=== PATIENT | male | born 1995 | race Caucasian/White ===

== ENCOUNTER 2017-01-28 22:35 | Emergency (ER) | payer OTHER, BC ==
[2017-01-28 22:41] VITALS: TEMP 98.2
--- NOTE | 2017-01-28 22:59 | EDPHY ---
H & P Stated Complaint: upper right chest pain HPI/ROS: HPI CHIEF COMPLAINT: Right-sided chest discomfort HISTORY OF PRESENT ILLNESS: This patient very pleasant 21-year-old male significant past medical history for IBS, presents to the emergency room with 3 days of right-sided chest discomfort he describes it is a tightness pain located in the right chest worse when he takes a deep breath in. Better when he breathes out. States he has been sick with a cough for the past 3 days. Productive sputum clear. No blood. Denies history of cardiac disease or premature cardiac history in his family denies history of pulmonary embolism. He does smoke tobacco daily and marijuana. No fever. Denies nausea vomiting denies left-sided chest pain denies arm pain jaw pain or neck pain. Past Medical History: IBS Past Surgical History: No recent surgical history Social History: Daily tobacco use, daily marijuana use, occasional alcohol use , denies other illicit drugs Family History: Noncontributory ROS REVIEW OF SYSTEMS: A comprehensive 10 point review of systems is otherwise negative aside from elements mentioned in the history of present illness. Exam Constitutional triage nursing summary reviewed, vital signs reviewed, awake/ alert. Eyes normal conjunctivae and sclera, EOMI, PERRLA. HENT normal inspection, atraumatic, moist mucus membranes, no epistaxis, neck supple/ no meningismus, no raccoon eyes. Respiratory clear to auscultation bilaterally, normal breath sounds, no respiratory distress, no wheezing. Cardiovascular rate normal, regular rhythm, no murmur, no edema, distal pulses normal. Gastrointestinal soft, non-tender, no rebound, no guarding, normal bowel sounds, no distension, no pulsatile mass. Genitourinary no CVA tenderness. Musculoskeletal no midline vertebral tenderness, full range of motion, no calf swelling, no tenderness of extremities, no meningismus, good pulses, neurovascularly intact. Skin pink, warm, & dry, no rash, skin atraumatic. Neurologic awake, alert and oriented x 3, AAOx3, moves all 4 extremities equally, motor intact, sensory intact, CN II-XII intact, normal cerebellar, normal vision, normal speech. Psychiatric normal mood/affect. Heme/Lymph/Immune no lymphadenopathy. Differential Diagnosis: Includes but is not limited to in a particular order, pleurisy, pneumonia, pneumothorax, doubt ACS, doubt CHF Medical Decision Making: Plan for patient IV establishment, blood work, two view chest x-ray, D-dimer, troponin, EKG. Re-evaluation: EKG interpretation by me on record in [facility] system. Impression time of EKG 12/13/1933, this is sinus rhythm rate of 56 early repol pattern present. No acute ischemia appreciated. ED x-ray chest two view: negative for acute cardiopulmonary disease. No evidence of pneumothorax. 1250AM: Re-examination at this time patient resting comfortably. Vital signs reviewed. Negative D-dimer, negative troponin, nonischemic EKG, unremarkable chest x-ray. Patient has atypical chest pain. Right-sided most likely musculoskeletal nature. Recommend Tylenol and ibuprofen. Understands return emergency room if develops worsening chest pain shortness of breath. No evidence this patient is having ACS or pulmonary embolism. Source: Patient - Personal History Current Tetanus Diphtheria and Acellular Pertussis (TDAP): Yes - Medical/Surgical History Hx Asthma: No Hx Chronic Respiratory Disease: No Hx Diabetes: No Hx Cardiac Disease: No Hx Renal Disease: No Hx Cirrhosis: No Hx Alcoholism: No Hx HIV/AIDS: No Hx Splenectomy or Spleen Trauma: No Other PMH: EASINOPHIL ESOPHAGITIS. IBS - Social History Smoking Status: Current every day smoker Constitutional: Initial Vital Signs Temperature (C) 36.8 C 01/28/17 22:38 Heart Rate 92 01/28/17 22:38 Respiratory Rate 20 01/28/17 22:38 Blood Pressure 115/65 01/28/17 22:38 O2 Sat (%) 97 01/28/17 22:38 O2 Delivery Mode Room Air Allergies/Adverse Reactions: No Known Allergies Allergy (Unverified 01/28/17 22:38) Home Medications: Medication Instructions Recorded Amoxicillin/Clavulanate Pot 875 mg PO BID #14 tab 01/27/15 [Augmentin 875 MG TAB (*)] oxyCODONE/APAP 5/325 [Percocet 1 - 2 tab PO Q4H PRN #20 tab 01/27/15 5/325 (*)] Adderall 10 MG (*) 01/28/17 Medical Decision Making - Diagnostics Imaging Results: Imaging Impressions Chest X-Ray 01/28/17 23:05 Impression: Minor skeletal variation. - Data Points Laboratory Results: Laboratory Results 01/28/17 23:34 01/28/17 23:34 01/28/17 01/28/17 01/28/17 23:34 23:34 23:34 WBC 7.04 10^3/uL 10^3/uL (3.80-9.50) RBC 5.38 10^6/uL 10^6/uL (4.40-6.38) Hgb 16.9 g/dL g/dL (13.7-17.5) Hct 48.1 % % (40.0-51.0) MCV 89.4 fL fL (81.5-99.8) MCH 31.4 pg pg (27.9-34.1) MCHC 35.1 g/dL g/dL (32.4-36.7) RDW 12.9 % % (11.5-15.2) Plt Count 195 10^3/uL 10^3/uL (150-400) MPV 11.0 fL fL (8.7-11.7) Neut % (Auto) 57.6 % % (39.3-74.2) Lymph % (Auto) 31.3 % % (15.0-45.0) Brown % (Auto) 6.7 % % (4.5-13.0) Eos % (Auto) 3.4 % % (0.6-7.6) Baso % (Auto) 0.9 % % (0.3-1.7) Nucleat RBC Rel Count 0.0 % % (0.0-0.2) Absolute Neuts (auto) 4.06 10^3/uL 10^3/uL (1.70-6.50) Absolute Lymphs (auto) 2.20 10^3/uL 10^3/uL (1.00-3.00) Absolute Monos (auto) 0.47 10^3/uL 10^3/uL (0.30-0.80) Absolute Eos (auto) 0.24 10^3/uL 10^3/uL (0.03-0.40) Absolute Basos (auto) 0.06 10^3/uL 10^3/uL (0.02-0.10) Absolute Nucleated RBC 0.00 10^3/uL 10^3/uL (0-0.01) Immature Gran % 0.1 % % (0.0-1.1) Immature Gran # 0.01 10^3/uL 10^3/uL (0.00-0.10) D-Dimer < 0.27 ug/mLFEU ug/mLFEU (0.00-0.50) Sodium 143 mEq/L mEq/L (134-144) Potassium 4.6 mEq/L mEq/L (3.5-5.2) Chloride 106 mEq/L mEq/L (97-110) Carbon Dioxide 25 mEq/l mEq/l (22-31) Anion Gap 12 mEq/L mEq/L (8-16) BUN 19 mg/dL mg/dL (7-23) Creatinine 1.0 mg/dL mg/dL (0.7-1.3) Estimated GFR > 60 Glucose 85 mg/dL mg/dL (70-100) Calcium 10.2 mg/dL mg/dL (8.5-10.4) Magnesium 2.2 mg/dL mg/dL (1.6-2.3) Total Bilirubin 2.2 mg/dL H mg/dL (0.1-1.4) Conjugated Bilirubin 0.4 mg/dL mg/dL (0.0-0.5) Unconjugated Bilirubin 1.8 mg/dL H mg/dL (0.0-1.1) AST 25 IU/L IU/L (17-59) ALT 34 IU/L IU/L (21-72) Alkaline Phosphatase 55 IU/L IU/L (38-126) Creatine Kinase 160 IU/L IU/L (0-224) CK-MB (CK-2) Fraction 1.57 ng/mL ng/mL (0-3.19) Troponin I < 0.012 ng/mL ng/mL (0-0.034) NT-Pro-B Natriuret Pep < 11 pg/mL pg/mL (0-125) Total Protein 8.0 g/dL g/dL (6.3-8.2) Albumin 4.7 g/dL g/dL (3.5-5.0) Lipase 201.0 IU/L IU/L (23-300) Departure - Departure Disposition: Home, Routine, Self-Care Clinical Impression: Atypical chest pain Condition: Good Instructions: Thoracic Pain (ED) Additional Instructions: 1. Stay well-hydrated drink lots of fluids. 2. Take Tylenol or Motrin for pain control. 3. Return to the emergency room if you have any worsening symptoms includes worsening pain shortness of breath or questions or concerns. Referrals: USMAN NEVAREZ [Other] - As per Instructions
--- NOTE | 2017-01-28 23:36 | CPEKG ---
Heart Rate: 56 RR Interval: 1071 P-R Interval: 156 QRSD Interval: 100 QT Interval: 416 QTC Interval: 402 P [place]: 56 QRS [place]: 99 T Wave [place]: 49 EKG Severity - OTHERWISE NORMAL ECG - EKG Impression: SINUS RHYTHM EKG Impression: BORDERLINE RIGHT AXIS DEVIATION EKG Impression: ST ELEV, PROBABLE NORMAL EARLY REPOL PATTERN EKG Impression: TALL T WAVES, PROBABLY NORMAL VARIANT Electronically Signed By: Jose Anderson 29-Jan-2017 07:15:42
[2017-01-28 23:40] LABS: % IMMATURE GRANULYOCYTES 0.1 % (0.0-1.1); ABSOLUTE IMMATURE GRANULOCYTES 0.01 10^3/uL (0.00-0.10); ADD DIFF? NO; ADD MORPH? NO; ADD SCAN? NO; ATYPICAL LYMPHOCYTE FLAG 0 (0-99); FRAGMENT RBC FLAG 0 (0-99); HEMATOCRIT 48.1 % (40.0-51.0); HEMOGLOBIN 16.9 g/dL (13.7-17.5); LEFT SHIFT FLG 0 (0-99); LIPEMIA HEMOLYSIS FLAG 90 (0-99); MEAN CELL HEMOGLOBIN 31.4 pg (27.9-34.1); MEAN CELL HEMOGLOBIN CONCENTR. 35.1 g/dL (32.4-36.7); MEAN CELL VOLUME 89.4 fL (81.5-99.8); PLATELET CLUMPS FLAG 0 (0-99); PLATELET COUNT 195 10^3/uL (150-400); RED BLOOD CELL COUNT 5.38 10^6/uL (4.40-6.38); RED CELL DISTRIBUTION WIDTH 12.9 % (11.5-15.2)
[2017-01-29] LABS: ALANINE AMINOTRANSFERASE 34 IU/L (21-72); ALBUMIN 4.7 g/dL (3.5-5.0); ALKALINE PHOSPHATASE 55 IU/L (38-126); ANION GAP 12 mEq/L (8-16); ASPARTATE AMINOTRANSFERASE 25 IU/L (17-59); BILIRUBIN,TOTAL 2.2 mg/dL (0.1-1.4); BILIRUBIN-CONJUGATED 0.4 mg/dL (0.0-0.5); BILIRUBIN-UNCONJUGATED 1.8 mg/dL (0.0-1.1); CALCIUM 10.2 mg/dL (8.5-10.4); CARBON DIOXIDE 25 mEq/l (22-31); CHLORIDE 106 mEq/L (97-110); GLOMERULAR FILTRATION RATE > 60; GLUCOSE 85 mg/dL (70-100); MAGNESIUM 2.2 mg/dL (1.6-2.3); POTASSIUM 4.6 mEq/L (3.5-5.2); SODIUM 143 mEq/L (134-144)
[2017-01-29 00:12] LABS: CREATINE KINASE-MB FRACTION 1.57 ng/mL (0-3.19); TROPONIN I < 0.012 ng/mL (0-0.034)
[2017-01-29 01:08] VITALS: BP 119/72; PULSE 62; RESP 16; O2SAT 95
== END 2017-01-29 01:07 | disposition home or self-care (01) ==
DX: R07.89 Other chest pain (principal); F17.200 Nicotine dependence, unspecified, uncomplicated

== ENCOUNTER 2017-06-17 02:19 | Emergency (ER) | payer OTHER ==
[2017-06-17 02:26] VITALS: RESP 16; TEMP 97.9
--- NOTE | 2017-06-17 02:42 | EDPHY ---
H & P Stated Complaint: L arm and teeth hurt, skateboarding fall HPI/ROS: HPI CHIEF COMPLAINT: Fall off skateboard left elbow and shoulder pain HISTORY OF PRESENT ILLNESS: This patient is a 22-year-old male otherwise healthy significant past medical history for IBS, he presents emergency room left elbow pain and left humerus pain. He states he fell off his skateboard. Landing on his left elbow and left arm. He additionally struck his face on the ground broke his front teeth. He denies any headache or neck pain. Denies any significant dental pain. No malocclusion. Main complaint is 7/10 left elbow and left humerus pain. He does report he has been drinking tonight. Past Medical History: No medical history except for IBS Past Surgical History: No recent surgical history Social History: Denies daily use of drugs alcohol tobacco products. Family History: Noncontributory ROS REVIEW OF SYSTEMS: A comprehensive 10 point review of systems is otherwise negative aside from elements mentioned in the history of present illness. Exam Constitutional triage nursing summary reviewed, vital signs reviewed, awake/ alert. Eyes normal conjunctivae and sclera, EOMI, PERRLA. HENT oropharynx: Front incisors are fractured. There is missing pieces of the end of the frontal incisors. normal inspection, atraumatic, moist mucus membranes, no epistaxis, neck supple/ no meningismus, no raccoon eyes. Respiratory clear to auscultation bilaterally, normal breath sounds, no respiratory distress, no wheezing. Cardiovascular rate normal, regular rhythm, no murmur, no edema, distal pulses normal. Gastrointestinal soft, non-tender, no rebound, no guarding, normal bowel sounds, no distension, no pulsatile mass. Genitourinary no CVA tenderness. Musculoskeletal left upper extremity: Held in adduction, he is tender palpation over the left posterior elbow olecranon, swelling present, with range of motion he has pain, he is sensation is tach, x-ray nerve intact, additionally also has pain palpation of the proximal humerus and lateral shoulder, limited range of motion due to pain, left arm is neurovascular intact good cap refill, good distal pulse. no midline vertebral tenderness, full range of motion, no calf swelling, no tenderness of extremities, no meningismus , good pulses, neurovascularly intact. Skin pink, warm, & dry, no rash, skin atraumatic. Neurologic awake, alert and oriented x 3, AAOx3, moves all 4 extremities equally, motor intact, sensory intact, CN II-XII intact, normal cerebellar, normal vision, normal speech. Psychiatric normal mood/affect. Heme/Lymph/Immune no lymphadenopathy. Differential Diagnosis: Includes but is not limited to in a particular order: Left elbow fracture, humerus fracture, shoulder fracture, multiple contusions, dental fracture Medical Decision Making: Plan for this patient [place] for pain control, x-ray left elbow, humerus, shoulder, most likely splint. Re-evaluation: The x-ray of his left shoulder, left humerus, left elbow has been reviewed. I do not appreciate acute fracture on any of these x-rays. However he does have significant elbow swelling on exam. There may be an occult radial head fracture. This patient be placed in a splint posterior long-arm. Sling. Pain Medicine orthopedic follow-up. Possible occult elbow fracture. Additionally his Teeth he needs to follow-up with dentistry. 0440AM: Patient has been splinted long arm posterior. Reason for splint elbow pain. Possible occult radial head fracture. Sling present. Patient understands follow up with Orthopedic surgery outpatient. Call for an appointment. He understands return emergency room if he has any worsening symptoms including pain, numbness tingling significant swelling. Questions about a splint. He is neurovascular intact at this time. No loss of sensation. Axillary nerve intact. Source: Patient - Personal History Current Tetanus/Diphtheria Vaccine: Yes - Medical/Surgical History Hx Asthma: No Hx Chronic Respiratory Disease: No Hx Diabetes: No Hx Cardiac Disease: No Hx Renal Disease: No Hx Cirrhosis: No Hx Alcoholism: No Hx HIV/AIDS: No Hx Splenectomy or Spleen Trauma: No Other PMH: PSHx: denies. PMHx: ADHDEASINOPHIL ESOPHAGITIS, IBS - Social History Smoking Status: Current every day smoker Constitutional: Initial Vital Signs Temperature (C) 36.6 C 06/17/17 02:22 Heart Rate 84 06/17/17 02:22 Respiratory Rate 16 06/17/17 02:22 Blood Pressure 115/68 06/17/17 02:22 O2 Sat (%) 95 06/17/17 02:22 O2 Delivery Mode Room Air Allergies/Adverse Reactions: No Known Allergies Allergy (Unverified 01/28/17 22:38) Home Medications: Medication Instructions Recorded Adderall 10 MG (*) 05/05/17 Hydrocodone/APAP 5/325 [[place] 1 - 2 tab PO Q4H PRN #10 tab 06/17/17 5/325] Ibuprofen [Motrin (*)] 800 mg PO Q6-8PRN #7 tab 06/17/17 Medical Decision Making - Data Points Medications Given: Discontinued Medications Hydrocodone Bitart/Acetaminophen ([place] 5/325) 1 tab PO EDNOW ONE Stop: 06/17/17 02:47 Last Admin: 06/17/17 02:49 Dose: 1 tab Hydrocodone Bitart/Acetaminophen ([place] 5/325) 1 tab PO EDNOW ONE Stop: 06/17/17 04:39 Last Admin: 06/17/17 04:39 Dose: 1 tab Departure - Departure Disposition: Home, Routine, Self-Care Clinical Impression: Elbow fracture, left Qualifiers: Encounter type: initial encounter Fracture type: closed Qualified Code(s): S42.402A - Unspecified fracture of lower end of left humerus, initial encounter for closed fracture Condition: Good Instructions: Hydrocodone/Acetaminophen (By mouth), Elbow Fracture (ED) Additional Instructions: 1. Stay in your splint for comfort. 2. Sling for comfort. 3. Please follow up with Orthopedics. You may have a elbow fracture. Referrals: MICHAEL COTTO [Other] - As per Instructions Brittney Haywood MD [Medical Doctor] - As per Instructions Prescriptions: Hydrocodone/APAP 5/325 [[place] 5/325] 1 - 2 tab PO Q4H PRN #10 tab PRN Reason: Pain, Moderate Ibuprofen [Motrin (*)] 800 mg PO Q6-8PRN #7 tab
[2017-06-17] MEDS ORDERED: HYDROCODONE/APAP 5/325 TAB PO ONE ×2 (02:46→04:38)
[2017-06-17] MEDS ORDERED: HYDROCOD/APAP 5/325 PREPACK#6 BTL TAKEHOME ONE (02:46)
[2017-06-17 04:54] VITALS: BP 94/53; PULSE 76; O2SAT 96
== END 2017-06-17 05:09 | disposition home or self-care (01) ==
DX: S52.125A Nondisplaced fracture of head of left radius, initial encounter for closed fracture (principal); F17.200 Nicotine dependence, unspecified, uncomplicated; V00.131A Fall from skateboard, initial encounter; Y99.8 Other external cause status; Y93.51 Activity, roller skating (inline) and skateboarding
CPT/HCPCS: A4565